=== PATIENT | female | born 1965 | race Caucasian/White ===

== ENCOUNTER 2022-12-17 09:25 | Day surgery (SDC) | payer OTHER ==
[~2022-12-17] VITALS: Ht 157.5 cm; Wt 93.1 kg
[~2022-12-17 09:25] MED LIST: EPIPEN0.3 MG/0.3 IM; IBUP800 PO; LEVSOD100 PO; LISI20 PO; Naprosyn500 MG PO; PAIN RELIEVER500 MG PO; ROXICODONE5 MG PO; TRIIODO-L-THYRONINE PO
[2022-12-17 11:42] VITALS: BP 123/85
== END 2022-12-17 11:43 | disposition home or self-care (01) ==
LOC: ORSCSDS 09:25
PROVIDERS: Internal Medicine Gastroenterology
PROC: 0DBM8ZX Excision of Descending Colon, Via Natural or Artificial Opening Endoscopic, Diagnostic (ICD-10-PCS; principal; 2022-12-17 10:45)
PROC: 0DBK8ZX Excision of Ascending Colon, Via Natural or Artificial Opening Endoscopic, Diagnostic (ICD-10-PCS; principal; 2022-12-17 10:45)
DX: Z12.11 Encounter for screening for malignant neoplasm of colon (principal); D12.2 Benign neoplasm of ascending colon; D12.4 Benign neoplasm of descending colon; I73.9 Peripheral vascular disease, unspecified; E03.9 Hypothyroidism, unspecified; E66.01 Morbid (severe) obesity due to excess calories; Z68.38 Body mass index [BMI] 38.0-38.9, adult; Z79.899 Other long term (current) drug therapy
CPT/HCPCS: 88305; J2405; J2704; J7120